=== PATIENT | male | born 1950 | race Caucasian/White ===

== ENCOUNTER 2019-02-01 08:28 | Outpatient (CLI) | payer MEDICARE ==
--- NOTE | 2019-02-02 15:42 | XRAY Report ---
Reason: SHOULDER PAIN BILATERAL, PAIN IN RIGHT KNEE Procedure Date: 02/01/2019 Accession Number: [id number] / [id number] Procedure: XRS - Knee 3 View RT CPT Code: Final Report FULL RESULT: EXAM: RIGHT KNEE RADIOGRAPHY EXAM DATE: 02/01/2019 09:03 AM. CLINICAL HISTORY: SHOULDER PAIN BILATERAL, PAIN IN RIGHT KNEE. COMPARISON: None. TECHNIQUE: 3 views. FINDINGS: Bones: Normal. No fractures or bone lesions. Joints: Moderate sized joint effusion. Amorphous calcifications in medial and lateral compartments. Soft Tissues: Normal. No soft tissue swelling. IMPRESSION: 1. Moderate-sized joint effusion. 2. Amorphous calcifications in the medial and lateral compartments consistent with chondrocalcinosis. RADIA
--- NOTE | 2019-02-02 15:55 | XRAY Report ---
Reason: PAIN IN SHOULDER AND RIGHT KNEE Procedure Date: 02/01/2019 Accession Number: [id number] / [id number] Procedure: XRS - Shoulder 3 View BILAT CPT Code: Final Report FULL RESULT: Bilateral Shoulder Radiography EXAM DATE: 02/01/2019 09:04 AM. CLINICAL HISTORY: Right shoulder pain. COMPARISON: None. TECHNIQUE: 3 views each. FINDINGS: Right: Bones: Bones are osteopenic. No fractures or bone lesions. Joints: Minor degenerative spurring is seen in the glenohumeral and acromioclavicular joints. Mild subchondral cystic changes present. Normal alignment. Soft tissues: The visualized hemithorax is unremarkable. No soft tissue swelling. Left: Bones: Bones are osteopenic. No fractures or bone lesions. Joints: Minor degenerative spurring is seen in the glenohumeral and acromioclavicular joints. Normal alignment. Soft tissues: The visualized hemithorax is unremarkable. No soft tissue swelling. IMPRESSION: Minor bilateral shoulder DJD. No acute findings. RADIA
== END 2019-02-01 08:29 | disposition home or self-care (01) ==
LOC: DI.S 08:28
PROVIDERS: ATTEND Nurse Practitioner Family
DX: M25.861 Other specified joint disorders, right knee (principal); M25.461 Effusion, right knee; M19.011 Primary osteoarthritis, right shoulder; M19.012 Primary osteoarthritis, left shoulder

== ENCOUNTER 2019-04-10 10:06 | Outpatient (CLI) | payer MEDICARE ==
--- NOTE | 2019-04-11 09:54 | XRAY Report ---
Reason: DYSPNEA, UNSPECIFIED Procedure Date: 04/10/2019 Accession Number: [id number] / [id number] Procedure: XRS - Chest 2 View X-Ray CPT Code: 47718 Final Report FULL RESULT: EXAM: CHEST RADIOGRAPHY EXAM DATE: 04/10/2019 10:26 AM. CLINICAL HISTORY: Dyspnea, unspecified. COMPARISON: None. TECHNIQUE: 2 views. FINDINGS: Lungs/Pleura: Hyperinflation with flattening of the diaphragm. Area of focal infiltrate in the medial right lung base. Bilateral alveolar opacification in the lower lung zimmer, nonspecific, but can be seen in pneumonia, including atypical pneumonia. Upper lungs appear clear. Mediastinum: Heart and mediastinal contours are unremarkable. Other: None. IMPRESSION: Right lung base infiltrate and bibasilar alveolar opacification, as above. RADIA
== END 2019-04-10 10:07 | disposition home or self-care (01) ==
LOC: DI.S 10:06
PROVIDERS: ATTEND Registered Nurse
DX: R91.8 Other nonspecific abnormal finding of lung field (principal)
CPT/HCPCS: 71046

== ENCOUNTER 2019-12-04 14:33 | Outpatient (CLI) | payer MEDICARE ==
--- NOTE | 2019-12-04 15:10 | XRAY Report ---
PROCEDURE: Knee 3 View LT INDICATIONS: PAIN IN LEFT KNEE TECHNIQUE: 3 views of the left knee(s) were acquired. COMPARISON: None. FINDINGS: Bones: No fractures or dislocations. No suspicious bony lesions. Soft tissues: No joint effusion. No suspicious soft tissue calcifications are seen except within th e medial border of the medial meniscus best appreciated on the frontal projection.. IMPRESSION: Meniscal calcifications of the medial compartment, no effusion or loose body seen. Mild narrowing of the medial compartment joint interspace is present, indicating mild osteoarthritis is th e likely cause. Reviewed by: Vasquez Downing MD on 12/04/2019 3:09 PM PDT Approved by: Vasquez Downing MD on 12/04/2019 3:09 PM PDT Station ID: [id number]
== END 2019-12-04 14:34 | disposition home or self-care (01) ==
LOC: DI.S 14:33
PROVIDERS: ATTEND Nurse Practitioner Family
DX: M25.562 Pain in left knee (principal)

== ENCOUNTER 2021-02-05 06:12 | Emergency (ER) | payer MEDICARE ==
[2021-02-05 06:47] LABS: BILIRUBIN,URINE NEGATIVE (NEGATIVE); GLUCOSE, URINE (UA) NEGATIVE (NEGATIVE); KETONES,URINE (UA) TRACE mg/dL (NEGATIVE); LEUKOCYTE ESTERASE, URINE NEGATIVE (NEGATIVE); NITRITE,URINE NEGATIVE (NEGATIVE); OCCULT BLOOD,URINE LARGE (NEGATIVE); PH,URINE 7.5 PH (5.0-7.5); PROTEIN,URINE TRACE mg/dL (NEGATIVE); UROBILINOGEN,URINE 0.2 (NORMAL) E.U./dL (NORMAL)
[2021-02-05 06:54] LABS: AMORPHOUS SEDIMENT,UR Marked /LPF; BACTERIA,URINE Rare /HPF (None Seen); CLARITY,URINE CLOUDY (CLEAR); SQUAMOUS EPITHELIAL CELL,UR RARE Squamous (<= Few); WBC,URINE 0-3 /HPF (0-3)
--- NOTE | 2021-02-05 06:58 | ED Physician Documentation ---
PD HPI ABD PAIN - Stated complaint Stated Complaint: LT SIDE PX - Chief complaint Chief Complaint: General - History obtained from History obtained from: Patient - History of Present Illness Timing - onset: How many days ago (2) Timing - duration: Days (2) Timing - details: Abrupt onset, Still present (has increased overnight, significantly painful now.) Quality: Aching, Sharp, Pain Location: LUQ Radiation: Left flank Improved by: No: Eating, Laying still, Meds (tried antacids. Did not try pain meds per se.) Worsened by: No: Eating, Moving, Breathing Associated symptoms: Nausea, Vomiting. No: Fever, Diarrhea, Constipation (no BM since Wednesday.) Similar symptoms before: Has not had sx before Recently seen: Not recently seen Review of Systems Constitutional: denies: Fever, Chills Nose: denies: Rhinorrhea / runny nose, Congestion Throat: denies: Sore throat Respiratory: denies: Cough GI: reports: Abdominal Pain (left side and flank), Nausea, Vomiting : denies: Dysuria, Frequency Skin: denies: Rash, Lesions Musculoskeletal: reports: Back pain. denies: Neck pain Neurologic: denies: Generalized weakness, Near syncope PD PAST MEDICAL HISTORY - Past Medical History Past Medical History: Yes Cardiovascular: None Respiratory: None Neuro: None Endocrine/Autoimmune: None GI: None : None HEENT: None Psych: None Musculoskeletal: Gout Derm: None - Past Surgical History Past Surgical History: No - Present Medications Home Medications: Ambulatory Orders Medication Instructions Recorded Confirmed Naproxen 500 mg PO BID 10 Days #20 tab 02/05/21 Ondansetron Odt [Zofran] 4 mg TL Q6H PRN #10 tablet 02/05/21 Tamsulosin [Flomax] 0.4 mg PO DAILY #5 cap 02/05/21 oxyCODONE [Roxicodone] 5 mg PO Q4-6H PRN #20 tablet 02/05/21 - Allergies Allergies/Adverse Reactions: Allergies Allergy/AdvReac Type Severity Reaction Status Date / Time No Known Drug Allergies Allergy Verified 02/05/21 06:31 - Social History Does the pt smoke?: No Smoking Status: Never smoker Does the pt drink ETOH?: Yes Does the pt have substance abuse?: No - Immunizations Immunizations are current?: Yes - POLST Patient has POLST: No PD ED PE NORMAL - Vitals Vital signs reviewed: Yes - General General: Alert and oriented X 3, Well developed/nourished, Other (appears in pain and moving around to try to get comfortable. ) - Neck Neck: Supple, no meningeal sign, No adenopathy - Cardiac Cardiac: RRR, No murmur - Respiratory Respiratory: Clear bilaterally - Abdomen Abdomen: Normal bowel sounds, Soft, Non distended, No organomegaly, Other (slight tender left upper without guarding nor percussion tender. ) - Male Male : Deferred - Rectal Rectal: Deferred - Back Back: No spinal TTP, Other (significant left CVA tenderness to percussion. Not tender to light touch. No rash nor sores. ) - Derm Derm: Normal color, Warm and dry, No rash - Extremities Extremities: No edema, No calf tenderness / cord - Neuro Neuro: Alert and oriented X 3, No motor deficit, Normal speech Results - Vitals Vitals: Vital Signs - 24 hr 02/05/21 02/05/21 06:25 09:27 Temperature 36.9 C 37.2 C Heart Rate 59 L 64 Respiratory 16 16 Rate Blood Pressure 165/70 H 140/71 H O2 Saturation 100 98 Oxygen O2 Source Room air - Labs Labs: Laboratory Tests 02/05/21 02/05/21 02/05/21 06:20 07:26 07:26 WBC 14.3 H RBC 4.62 L Hgb 14.2 Hct 40.6 L MCV 87.9 MCH 30.7 MCHC 35.0 RDW 12.7 Plt Count 151 MPV 10.8 Neut # (Auto) 11.5 H Lymph # (Auto) 1.7 [place] # (Auto) 0.9 Eos # (Auto) 0.0 Baso # (Auto) 0.1 Absolute Nucleated RBC 0.00 Nucleated RBC % 0.0 Sodium 136 Potassium 3.8 Chloride 99 L Carbon Dioxide 26 Anion Gap 11.0 BUN 29 H Creatinine 1.5 H Estimated GFR (MDRD) 46 L Glucose 124 H Calcium 9.7 Total Bilirubin 2.3 H AST 24 ALT 20 Alkaline Phosphatase 58 Total Protein 7.9 Albumin 4.8 Globulin 3.1 Albumin/Globulin Ratio 1.5 Lipase 28 Urine Color YELLOW Urine Clarity CLOUDY Urine pH 7.5 Ur Specific [place] 1.020 Urine Protein TRACE Urine Glucose (UA) NEGATIVE Urine Ketones TRACE Urine Occult Blood LARGE H Urine Nitrite NEGATIVE Urine Bilirubin NEGATIVE Urine Urobilinogen 0.2 (NORMAL) Ur Leukocyte Esterase NEGATIVE Urine RBC 6-10 H Urine WBC 0-3 Ur Squamous Epith Cells RARE Squamous Amorphous Sediment Marked Urine Bacteria Rare Ur Microscopic Review INDICATED Urine Culture Comments NOT INDICATED - Rads (name of study) abd/pelvic CT Radiology: Prelim report reviewed, EMP read contemporaneously (5x7 mm ureteral stone in proximal third of left ureteral with mild hydronephrosis.), See rad report PD MEDICAL DECISION MAKING - ED course Complexity details: reviewed results, re-evaluated patient (much improved pain level with IV meds. ), considered differential (flank pain and some blood in urine. Consider kidney stone, but also consider diverticular, vascular such as aneurysm, splenic infarct.), d/w patient Departure - Departure Disposition: 01 Home, Self Care Clinical Impression: Ureterolithiasis, Flank pain, acute Condition: Stable Record reviewed to determine appropriate education?: Yes Instructions: ED Stone Renal W Colic Follow-Up: Osbaldo Eaton MD [Primary Care Provider] - Prescriptions: Tamsulosin [Flomax] 0.4 mg PO DAILY #5 cap Naproxen 500 mg PO BID 10 Days #20 tab oxyCODONE [Roxicodone] 5 mg PO Q4-6H PRN #20 tablet PRN Reason: Pain Ondansetron Odt [Zofran] 4 mg TL Q6H PRN #10 tablet PRN Reason: Nausea / Vomiting Comments: I transmitted your prescriptions to [facility] in [place]. Dehydrated but there is no reason to over hydrate per se. You do have a 5 to 7 mm stone in the left ureter (kidney stone). This is of a passable size and the majority will pass over several days to week. Follow-up with your primary care Dr. Eaton or [place] referral line for referral to urologist if you do not seem to be improving over the next several days to week. We will try to keep the symptoms tolerable with anti-inflammatory naproxen twice daily with food. Add Tylenol 650 mg 3 times a day regularly for the next several days as well. To that add oxycodone every 4-6 hours if needed for worse pain. Tamsulosin daily to reduce ureteral spasms and help promote passage of the stone . Recheck if not improved well over the next several days and return to the ER if symptoms are uncontrolled with the above medications. My narcotic instructions I am prescribing a short course of narcotic pain medication for you. These are potentially dangerous and addictive medications that should be used carefully. These medications may constipate you. Take an [id number] stool softener such as docusate twice daily with plenty of water while taking these medications. If you go 24 hours without a bowel movement, take [id number] MiraLAX, per package instructions. Do not drink or drive while taking these medications. If you received narcotic or sedating medications while in the emergency department do not drive for 24 hours. Store this medication in a safe, secure place and out of reach of children. It is a violation of federal law to give or sell this medication to another person or to use in a manner other than prescribed. The ED will not refill narcotic prescriptions, including prescriptions lost or stolen. You can dispose of unwanted medications at the [facility]'s office or at several pharmacies such as [facility]. Discharge Date/Time: 02/05/21 10:19
[2021-02-05] MEDS ORDERED: KETOROLAC 15 MG/ML VIAL IVP STA (07:14)
[2021-02-05] MEDS ORDERED: HYDROmorphone 1 MG/ML CARPUJECT IVP STA (07:14)
[2021-02-05] MEDS ORDERED: SODIUM CHLORIDE 0.9% 1,000 ML IV STA (07:14)
[2021-02-05] MEDS ORDERED: ONDANSETRON 4 MG/2 ML VIAL IVP STA (07:14)
[2021-02-05 07:40] LABS: BASOPHILS # (AUTO) 0.1 10^3/uL (0.0-0.1); BASOPHILS % (AUTO) 0.3 %; EOSINOPHILS % (AUTO) 0.1 %; HCT - HEMATOCRIT 40.6 % (42.0-52.0); HGB - HEMOGLOBIN 14.2 g/dL (14.0-18.0); LYMPHOCYTES # (AUTO) 1.7 10^3/uL (1.5-3.5); MEAN CORPUSCULAR HEMOGLOBIN 30.7 pg (27.0-31.0); MEAN CORPUSCULAR VOLUME 87.9 fL (80.0-94.0); MEAN PLATELET VOLUME 10.8 fL (7.4-11.4); MONOCYTES # (AUTO) 0.9 10^3/uL (0.0-1.0); MONOCYTES % (AUTO) 6.5 %; NEUTROPHILS # (AUTO) 11.5 10^3/uL (1.5-6.6); NEUTROPHILS % (AUTO) 80.4 %; PLT - PLATELET COUNT 151 10^3/uL (130-450); RED BLOOD COUNT 4.62 10^6/uL (4.70-6.10); RED CELL DISTRIBUTION WIDTH 12.7 % (12.0-15.0); WHITE BLOOD COUNT 14.3 x10^3/uL (4.8-10.8)
[2021-02-05 07:54] LABS: ALBUMIN 4.8 g/dL (3.2-5.5); ALBUMIN/GLOBULIN RATIO 1.5 (1.0-2.2); BILIRUBIN,TOTAL 2.3 mg/dL (0.2-1.0); CALCIUM 9.7 mg/dL (8.5-10.3); CREATININE 1.5 mg/dL (0.6-1.2); POTASSIUM 3.8 mmol/L (3.5-5.0); TOTAL PROTEIN 7.9 g/dL (6.7-8.2)
--- NOTE | 2021-02-05 09:18 | CT Report ---
PROCEDURE: Abdomen/Pelvis W INDICATIONS: Abdominal pain, acute, left flank/abd CONTRAST: IV CONTRAST: Optiray 320 ml: 100 PO CONTRAST: *NO PO CONTRAST TECHNIQUE: After the administration of intravenous contrast, 5 mm thick sections acquired from the diaphragms to the symphysis. 5 mm thick coronal and sagittal reformats were acquired. For radiation dose reducti on, the following was used: automated exposure control, adjustment of mA and/or kV according to dia ent size. COMPARISON: None. FINDINGS: Image quality: Excellent. ABDOMEN: Lung bases: There is a small 2 to 3 mm subpleural nodule in the left lower lobe on series 4 image 7. A small region of indistinct round glass opacity within the medial right lower lobe on series 4 image 6 may reflect a mild infectious or inflammatory process versus scarring. Heart size is normal. Solid organs: Evaluation of the liver demonstrates no focal hepatic lesions. Gallbladder appears wit hin normal limits without calcified gallstones. Biliary system is non dilated. The spleen is normal in size. Pancreas enhances normally without peripancreatic fat stranding or fluid collections. No ad renal nodules. There is an obstructing stone measuring up to 7 mm within the proximal left ureter with associated mi ld left hydroureteronephrosis. Mild perinephric and perirenal fat stranding also present. The mid to distal left ureter are nondistended. There are several hydronephrosis. Right ureter is nondistended. Peritoneum and bowel: Bowel loops demonstrate normal wall thickness and caliber. The appendix is nor mal in appearance. There is colonic diverticulosis without acute diverticulitis. No free fluid or air . Nodes and vessels: No retroperitoneal or mesenteric adenopathy by size criteria. Aorta and inferior vena cava are normal in size. Miscellaneous: No ventral hernias. PELVIS: Genitourinary: Bladder wall thickness is normal. Miscellaneous: No inguinal hernias or adenopathy. Bones: No suspicious bony lesions. No vertebral body compression fractures. IMPRESSION: 1. Obstructing proximal left ureteral stone with mild left hydroureteronephrosis. 2. Colonic diverticulosis without acute diverticulitis. 3. Small left lower lobe 2 to 3 mm pulmonary nodule. If patient is at high risk for malignancy, a fol low-up CT may be performed in 12 months to demonstrate stability if clinically indicated. Reviewed by: Dejon Linares MD on 02/05/2021 8:17 AM [facility] Approved by: Dejon Linares MD on 02/05/2021 8:17 AM [facility] Station ID: [id number]
[2021-02-05] MEDS ORDERED: TAMSULOSIN 0.4 MG CAPSULE PO STA (09:19)
[2021-02-05] MEDS ORDERED: oxyCODONE 5 MG TABLET PO STA (09:19)
[2021-02-05] MEDS ORDERED: DEXAMETHASONE 10 MG/ML VIAL IVP STA (09:19)
[2021-02-05 09:28] VITALS: BP 140/71
[2021-02-05] MEDS ORDERED: IOPAMIDOL-300 100 ML VIAL IVP ONE (10:23)
== END 2021-02-05 10:19 | disposition home or self-care (01) ==
LOC: ED 06:12
DX: N13.2 Hydronephrosis with renal and ureteral calculous obstruction (principal)
CPT/HCPCS: 36415; 74177; 80053; 81001; 83690; 85025; 96374; 96375; 99284; A9270; J1170; 81003; 87086

== ENCOUNTER 2021-03-12 08:27 | Day surgery (SDC) | payer MEDICARE ==
[2021-03-12] MEDS ORDERED: LACTATED RINGERS 1,000 ML IV ONE ×2 (08:55→10:30)
[2021-03-12] MEDS ORDERED: PROPOFOL 500 MG/50 ML 500 MG/50 ML VIAL ONE (09:49)
[2021-03-12] MEDS ORDERED: fentaNYL 100 MCG/2 ML VIAL ONE (09:53)
[2021-03-12] MEDS ORDERED: MIDAZOLAM 2 MG/2 ML VIAL ONE (09:53)
--- NOTE | 2021-03-12 10:00 | ANESTHESIA ---
Pre-Anesthesia VS, & Labs - Diagnosis screening exam - Procedure colonoscopy Vital Signs: Temp Pulse Resp BP Pulse Ox 36.4 C L 60 22 143/68 H 99 03/12/21 08:44 03/12/21 08:44 03/12/21 08:44 03/12/21 08:44 03/12/21 08:44 Height: 5 ft 10 in Weight (kg): 72 kg Body Mass Index: 22.7 BMI Classification: Healthy weight - NPO >8 hours Home Medications and Allergies none Allergies/Adverse Reactions: Allergies Allergy/AdvReac Type Severity Reaction Status Date / Time No Known Drug Allergies Allergy Verified 02/05/21 06:31 Anes History & Medical History - Anesthetic History Family history of Anesthesia Complications: Denies Family history of Malignant Hyperthermia: Denies - Medical History Cardiovascular: reports: None Pulmonary: reports: None, Other (snores) Gastrointestinal: reports: None Urinary: reports: Kidney stones Neuro: reports: None Musculoskeletal: reports: None Endocrine/Autoimmune: reports: None Blood Disorders: reports: None Skin: reports: None Smoking Status: Never smoker Psychosocial: reports: Cannabis (CBD occassionally) History of Cancer?: No - Surgical History General: reports: Colonoscopy Exam General: Alert, Oriented x3, Cooperative, No acute distress Dental: WNL Mouth Openin Fingerbreadth Neck Mobility: Normal Mallampati classification: III Thyromental Distance: 4-6 cm Mental/Cognitive Status: Alert/Oriented X3, Normal for patient Plan Anesthesia Type: General, Total IV Consent for Procedure(s) Verified and Reviewed: Yes Code Status: Attempt Resuscitation ASA classification: 1-Healthy patient Is this case an emergency?: No
[2021-03-12 11:25] VITALS: BP 122/60
--- NOTE | 2021-03-12 12:19 | ANESTHESIA POST OP EVALUATION ---
Anesthesia Post Eval - Post Anesthesia Eval Vitals: Last Vital Signs Temp 36.6 C 03/12/21 11:15 Pulse 62 03/12/21 11:15 Resp 16 03/12/21 11:15 BP 122/60 03/12/21 11:15 Pulse Ox 99 03/12/21 11:15 CV Function Including HR & BP: Stable Pain Control: Satisfactory Nausea & Vomiting: Negative Mental Status: Baseline Respiratory Status: Airway Patent Hydration Status: Satisfactory Anesthesia Complications: None
== END 2021-03-12 08:28 | disposition home or self-care (01) ==
LOC: SDS 08:27
PROVIDERS: ATTEND Surgery
DX: Z12.11 Encounter for screening for malignant neoplasm of colon (principal); K64.8 Other hemorrhoids
CPT/HCPCS: G0121; J7120

== ENCOUNTER → 2022-05-08 | Outpatient (CLI) | payer MEDICARE | END | disposition short-term general hospital (02) | LOC: EMS 18:12 | DX: M54.50 Low back pain, unspecified (principal); R10.32 Left lower quadrant pain; R39.198 Other difficulties with micturition; R11.2 Nausea with vomiting, unspecified; R25.1 Tremor, unspecified | CPT/HCPCS: A0425; A0427 ==

== ENCOUNTER 2022-07-09 09:28 | Outpatient (CLI) | payer MEDICARE ==
--- NOTE | 2022-07-09 09:47 | Sleep Patient Instructions ---
Sleep Center Visit Summary - Patient Visit Information Reason for Visit: Initial consult for evaluation of sleep disordered breathing and other sleep issues. - Patient Instructions Instructions Attached: Sleep Clinic Visit, Sleep Study Additional Instructions: You will be completing a sleep study, either an in-lab polysomnography (PSG) or home sleep study (HST). You will follow-up in the sleep care office after the sleep study is completed to hear the results and talk about therapy, if needed. You will be called by our office staff to schedule this appointment, but you may contact us with any questions. - Clinic Information Contact: [facility] [address] [place] [address] [email or web address] T: [phone]
--- NOTE | 2022-07-09 10:11 | SLEEP CARE CONSULTATION ---
Information from patient questionnaire entered by Nadine Aguilar. I have reviewed and concur with the information entered by Nadine Aguilar. This document represents the service I personally performed and the decisions made by me, Freda Cooper ARNP. History of Present Illness Service Date and Time: 07/09/2022927 Reason for Visit: New patient Chief Complaint: reports: Snoring Date of Onset: years Usual bedtime: 930-10PM Time it takes to fall asleep: 10-15MIN Snores at night: Yes Observed to quit breathing while asleep: No Sleeps alone due to snoring: Yes (since 2018) Number of times waking at night: 1 Reasons for waking at night: reports: Bathroom. denies: Choking, Snoring, Gasping for air Toss, Turn, or Twitch while sleeping: No Recalls having dreams: No (does know he has them but doesn't remember them) Usually gets out of bed at: 6AM Feels refreshed in the morning: Yes Morning headache: No Sleepy or fatigued during the day: Yes (no intentional napping) Ever fallen asleep while driving: No Takes day naps: Yes (only unintentional naps for about 20 minutes) Dreams during day naps: No Prior sleep studies: No Additional HPI information: I had the pleasure of seeing YAHAIRA PAIZ today regarding the possibility of him having a sleep disorder. His current complaint is snoring. He states he was at [facility] with kidney stones and was told he may have sleep apnea. They told him that he snored but nothing else. He has always snored loudly and his will sleep in separate room since 2019. He states he had his nose broken and has sinus drainage also affecting him. His has never noticed him stop breathing at night. - Parasomnia Symptoms Ever been unable to move upon waking from sleep: No Walks in sleep: No Talks in sleep: No Ever acted out dreams in sleep: No Ever felt weak in the knees when startled or emotional: No Bothered by creepy, crawly, restless sensations in legs: No Problems with memory or concentration: No Subjective Initial [place] Sleepiness Scale score: 2 (07/09/22) Past Medical History Past Medical History: reports: Other (KIDNEY STONE REMOVED EARLIER THIS MONTH) Social History The patient's occupation is a RE. Patient is and lives in [place]. Have you smoked in the past 12 months: No Alcohol use: Yes Alcohol amount and frequency: 1-2 MAYBE ONCE A MONTH Caffeine use: Yes Caffeine amount and frequency: 1 CUP MORNING TIME Family History Family history of sleep disordered breathing: No Allergies and Home Medications Known drug allergies: No Drug allergies reviewed: Yes Home medication list reviewed: Yes Allergy and home medication list: Allergies No Known Drug Allergies Allergy (Verified 07/08/22 08:59) Medications: Glucosamine Turmeric concentrated jones juice prn pseudogout OTC generic Flonase for allergies Review of Systems Weight gain over past 5 years: 3-4 Weight loss over past 5 years: 3-4 Cardiovascular: denies: high blood pressure Gastrointestinal: denies: heartburn Neurological: denies: headaches Ear/Nose/Throat: reports: nasal congestion, sinus problems, injury to nose (broken), wisdom teeth removed. denies: tonsillectomy Endocrine: denies: thyroid disease Musculoskeletal: reports: other (FROZEN SHOULDER) Immunologic: reports: allergies to food or environment Physical Exam Vital signs obtained and entered by: NADINE Fang MA Blood Pressure: 118/64 (LEFT ARM) Cuff size: regular Heart Rate: 54 O2 Saturation: 99 Height: 5 ft 10 in Weight: 154 lb 6.4 oz Body Mass Index: 22.1 BMI Classification: Normal Neck circumference: 15.5 Mouth and throat: narrow oropharynx Soft palate: long Hard palate: normal Uvula: normal Uvula visualization: 25% Mallampati Class III Tonsils: small Neck: normal w/o lymphadenopathy or thyromegaly Heart: regular rate and rhythm Lungs: clear bilaterally Impression and Plan 1. Suspected Obstructive Sleep Apnea-Hypopnea Syndrome, as suggested by a history of loud and irregular snoring. Narrow oropharynx and obesity are common predisposing factors for obstructive sleep apnea-hypopnea syndrome. I recommend proceeding to polysomnography to confirm the diagnosis and to assess severity. If the patient has significant sleep disordered breathing, a manual CPAP titration study will also be performed to find the optimal treatment pressure. I informed the patient of what the sleep studies involve and after some discussion, obtained agreement to proceed. The pathophysiology of obstructive sleep apnea-hypopnea syndrome was discussed with the patient and health risks of cardiovascular and cerebrovascular disease if not treated. Risks of drowsy driving discussed in detail and patient advised to avoid long distance driving and to kidney puller at the first sign of drowsiness. Patient agreed to plan. * Schedule polysomnography +- manual CPAP titration study and return in 1-2 weeks after the study to discuss result and initiate therapy. * Avoid long distance driving or driving when feeling sleepy. * Avoid alcohol, sedative and muscle relaxant around bedtime. * Review instructions provided by trained office staff on how to prepare for the sleep study. * Return for follow-up after sleep study completed. Visit Type: In Office Time Spent with Patient (minutes): 31 Provider Statement: I spent 100% of the Face to Face Visit with the patient with greater than 50% spent counseling the patient and coordination of care.
[2022-07-09 10:13] VITALS: BP 118/64
== END 2022-07-09 09:29 | disposition home or self-care (01) ==
LOC: SC 09:28
PROVIDERS: ATTEND Nurse Practitioner Family
DX: R06.83 Snoring (principal)
CPT/HCPCS: 99203; G0463; 99212

== ENCOUNTER 2022-07-17 19:17 | Outpatient (CLI) | payer MEDICARE | END 2022-07-17 19:18 | disposition home or self-care (01) | LOC: SC 19:17 | PROVIDERS: ATTEND Nurse Practitioner Family | DX: G47.61 Periodic limb movement disorder (principal) | CPT/HCPCS: 95810 ==

== ENCOUNTER 2022-07-24 11:05 | Outpatient (CLI) | payer MEDICARE ==
--- NOTE | 2022-07-24 10:54 | SLEEP CARE CONSULTATION ---
Information from patient questionnaire entered by Diamond Aguilar. I have reviewed and concur with the information entered by Diamond Aguilar. This document represents the service I personally performed and the decisions made by , Freda Cooper ARNP. History of Present Illness Service Date and Time: 07/24/2022 1040 Initial [place] Sleepiness Scale score: 2 (07/09/22) Current [place] Sleepiness Scale score: 3 (07/24/22) Additional HPI information: YAHAIRA PAIZ returns via video telehealth visit for follow up and results of the recently performed polysomnography. The patient was informed of the following findings: No significant sleep disordered breathing with an average AHI of 1.8 and connie oxygen saturation of 91%. Elevated supine AHI at 6.0 and moderate PLM's not contributing to sleep fragmentation. I explained the pathophysiology behind obstructive sleep apnea. Patient does not have sleep apnea and was advised how weight gain could increase the risk of developing sleep apnea in the future. Patient does not have significant sleep disordered breathing but has elevated AHI in supine position so advised positional therapy. Methods to achieve positional management therapy were discussed; such as, positioning with pillows, wearing a T-shirt with tennis balls sewn into the back or commercially available products. Patient has light to loud snoring. Snoring can be reduced by weight loss. Weight loss is best achieved with diet consult. Patient instructed to contact PCP for referral. Snoring can also be treated with an oral appliance from a dentist. Advised to check insurance coverage. In addition, an ENT evaluation can be do to see if other treatment is indicated. Patient does not drink alcohol. Patient was cautioned about risks of drowsy driving until sleepiness symptoms resolve. Patient denies drowsy driving. Sleep Study - Results Type of Sleep Study: Polysomnography (COMPLETED 07/17/22) Prior sleep studies: No Polysomnography/Home Sleep Study results: IMPRESSION: The quality of the study is good. The patient had normal sleep efficiency. The sleep architecture was relatively normal considering the first-night effect. Respiratory monitoring showed no significant sleep disordered breathing (AHI = 1.8) or hypoxia (connie oxygen saturation of 91%). The few respiratory events occurred almost exclusively during supine sleep (supine AHI = 6.0; non-supine = 1.47). Snore was light to loud in intensity. There was moderate periodic leg movement of sleep not associated with sleep fragmentation. Cardiac rhythm was normal sinus rhythm without significant arrhythmia. No abnormal behavior (parasomnia) observed during the night. Allergies and Home Medications Known drug allergies: No Drug allergies reviewed: Yes Home medication list reviewed: Yes (no changes) Allergy and home medication list: Allergies No Known Drug Allergies Allergy (Verified 07/24/22 09:38) Review of Systems Review of systems same as previous: Yes (no changes) Physical Exam Vital signs obtained and entered by: DIAMOND Fang MA Height: 5 ft 10 in (PER PT) Weight: 152 lb (PER PT) Body Mass Index: 21.8 BMI Classification: Normal Impression and Plan 1. Snoring but no significant sleep disordered breathing. However, patient had an elevated supine AHI and is advised to avoid supine sleep. Patient advised that he can use a pillow positioning, continue sure tennis balls sewn in the back or other commercially available positioning belts to avoid supine sleep. Patient advised that often weight loss will reduce snoring as well as apnea risk. An oral appliance can also be used for snoring. This would require a dental consultation. Patient cautioned not to use other online appliances as can cause bite issues. A list of accredited dentists in [facility] and one local dentist who makes oral appliances is available in office as needed. Patient is advised to check if insurance will cover. An ENT consult can also be helpful to determine if any other treatment is an option. 2. Periodic limb movement, moderate, that did not fragment patients sleep. Periodic limb movement of sleep (PLMS) is characterized by episodes of repetitive limb movements that occur during sleep and usually involve the lower limbs. The etiology is unknown. Caffeine can aggravate PLMS and should be avoided. Sleep hygiene methods can also improve sleep as well as lifestyle changes such as regular exercise. Patient was advised that no treatment is needed at this time. If symptoms increase, then further evaluation is indicated. * Avoid supine sleep * Avoid alcohol consumption near bedtime * The patient is cautioned about driving until sleepiness is completely resolved. * Return as needed for follow up. Counseling Topics: Sleeping position Visit Type: Telehealth Video Video Type: Doximity Patient Location: Home Location of Provider: Office Patient agrees and consents to this telehealth visit type: Yes Patient agrees to have their insurance billed: Yes Time Spent with Patient (minutes): 12 Provider Statement: I spent 100% of the Telehealth Video Call with the patient with greater than 50% spent counseling the patient and coordination of care.
== END 2022-07-24 11:06 | disposition home or self-care (01) ==
LOC: SC 11:05
PROVIDERS: ATTEND Nurse Practitioner Family
DX: R06.83 Snoring (principal); G47.61 Periodic limb movement disorder